=== PATIENT | female | born 1970 | race Hispanic/Latino ===

== ENCOUNTER 2018-07-13 02:06 | Emergency (ER) | payer OTHER ==
[~2018-07-13] VITALS: Ht 149.9 cm; Wt 72.6 kg
[2018-07-13] MEDS ORDERED: CEFTRIAXONE SOD 1 GM VIAL IM ONE (05:00)
[2018-07-13 05:57] VITALS: BP 151/93
== END 2018-07-13 06:07 | disposition home or self-care (01) ==
LOC: ER 02:06
DX: K08.89 Other specified disorders of teeth and supporting structures (principal); K04.7 Periapical abscess without sinus
CPT/HCPCS: 99282; J0696